=== PATIENT | male | born 1980 | race Caucasian/White ===

== ENCOUNTER 2023-05-02 13:33 | Emergency (ER) | payer MEDICAID, SELFPAY ==
[2023-05-02 13:40] VITALS: BP 108/50; BP 139/85; PULSE 104; PULSE 92; RESP 16; TEMP 36.5; O2SAT 93; O2SAT 94; BMI 29.2
--- NOTE | 2023-05-02 13:45 | ED_ITS ---
HPI - Overdose General Chief Complaint: Overdose Stated Complaint: OVERDOSE Time Seen by Provider: 05/02/23 13:42 Source: patient and EMS Mode of arrival: EMS Limitations: no limitations History of Present Illness HPI Narrative: This is 42 years old male brought in by the ambulance after an overdose, per ambulance EMS patient was found in the apartment awake and alert he was given 40 mg not can by bystander benign by the EMS. EMS states that he was no apneic and their arrival he was no ventilated. complaint: accidental overdose Onset (ago): hour(s) (1) Context: Accidental Overdose: wanted to get high Related Data Allergies Allergy/AdvReac Type Severity Reaction Status Date / Time No Known Allergies Allergy Unverified 08/03/20 15:25 Review of Systems ENT: Reports system reviewed and no additional complaints, except as documented Cardiovascular: Cardiovascular: Reports no additional cardiovascular complaints Respiratory: Respiratory: Reports no additional respiratory complaints Gastrointestinal: Gastrointestinal: Reports no additional gastrointestinal complaints PMFSH Past Medical History PMFSH Narrative: History of substance abuse Social History Social History Substance Use Type: Heroin Advance Directives: No Advance Directives Information Provided: No Physical Exam Vital Signs: Vital Signs: Last Vital Signs Temp 97.7 F 05/02/23 13:40 Pulse 92 05/02/23 13:40 Resp 16 05/02/23 13:40 BP 139/85 05/02/23 13:40 Pulse Ox 93 05/02/23 13:40 O2 Del Method Room Air 05/02/23 13:40 BMI result Body Mass Index 29.2 Const: General: cooperative Nutritional Appearance: well nourished Orientation/consciousness: patient oriented x3 Limitations: no limitations HEENT: Head: Yes normal to inspection General nose exam: Normal external nose present Face and sinus: Yes normal facial exam Mouth: Normal oral and palatal mucosa present Throat: Yes posterior oropharynx normal Neck: Neck: Yes normal visual inspection Thyroid: Thyroid normal Chest: Chest palpation & inspection: normal inspection of the chest Resp: Effort & Inspection: normal respiratory effort Auscultation: clear to auscultation bilaterally Cardio: Jugular venous distension: no JVD Rate: regular rate Rhythm: regular rhythm GI: Inspection: Yes normal to inspection Palpation (GI): Soft to palpation, not firm and nontender Percussion: Yes normal to percussion Skin: General skin exam: no rashes or lesions noted Lesions: no lesions Rashes: no rashes Neuro: General: patient oriented x3 Cranial nerves: Yes CN's II-XII intact bilaterally Cognition (Neuro): normal cognition Course Reevaluation(s) Reevaluation #1: 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 Plan is also to consult the care team for possible detox Differential Diagnosis Differential Diagnoses: The differential diagnosis associated with the presentation includes Overdose/pulmonary edema secondary to high dose of Narcan however he is not short of breath his saturation is good/endocarditis secondary to IVDA however he has no fever Admission/Observation Consideration of admission/observation: Escalation of care including admission/observation considered Independent Historian Clinical information obtained from an independent historian. History obtained from or confirmed by: EMS spoke personally with EMS Discharge Plan Discharge Clinical Impression: Drug overdose Patient Disposition: Still a Patient
--- NOTE | 2023-05-02 14:39 | HO.SUDE ---
Pt declined SUDE, declined to speak with t/w about any recovery supports or MOUD.
--- NOTE | 2023-05-02 14:44 | PC.NURSE ---
security at bedside to change pt over, belongings to be placed in decon.
--- NOTE | 2023-05-02 15:24 | PC.NURSE ---
pt sleeping in room, resp even and unlabored
--- NOTE | 2023-05-02 15:57 | MHC.EDTECH ---
pt is refusing vitals at this time. Pt is in bed, no apparent distress.
--- NOTE | 2023-05-02 18:24 | MHC.RECOVSUP ---
? Reason for consult:OPI o? Current location:ED10? o? Identified substance use concern:? -? Overdose ? Intervention: o? Community resources provided o? Harm reduction discussion ? Plan:Discharge ? Additional information:JOSE met with this pt and discussed treatment, Pt declined any services and stated it was an accident due to stress. RC provided this pt with recovery resources and business card in case pt changes his mind.
[2023-05-02 20:01] VITALS: BP 127/78; PULSE 77; RESP 18; TEMP 37; O2SAT 98
== END 2023-05-02 20:02 | disposition home or self-care (01) ==
PROVIDERS: Emergency Provider Student in an Organized Health Care Education/Training Program
DX: T40.1X1A Poisoning by heroin, accidental (unintentional), initial encounter (principal); R06.81 Apnea, not elsewhere classified; Y92.9 Unspecified place or not applicable
CPT/HCPCS: 99284

== ENCOUNTER 2023-05-27 11:29 | Emergency (ER) | payer MEDICAID, SELFPAY ==
[2023-05-27 11:35] VITALS: BP 133/82; BP 145/88; PULSE 108; PULSE 89; RESP 18; TEMP 37.1; O2SAT 94; O2SAT 97; BMI 29.1
--- NOTE | 2023-05-27 11:40 | ED_ITS ---
HPI - General Adult General Chief complaint: Overdose Stated complaint: Poss overdose (heroin) per EMS Time Seen by Provider: 05/27/23 11:39 Source: patient and EMS Mode of arrival: EMS Limitations: no limitations History of Present Illness HPI narrative: Patient is a 42 year old assigned male at with a history of opiate use presenting to the emergency department today after an accidental overdose. Patient states that he did 2 bags of heroin, family found him, gave narcan, and attempted to start CPR on him when he woke up. Patient states that he does not want any help with his heroin use. Patient denies any dizziness, lightheadedness, abdominal pain, nausea, vomiting, fever, chills, blurry vision, double vision, loss of vision, chest pain, difficulty breathing, shortness of breath, back pain, night sweats, pain with urination, increased urinary frequency, increased urinary urgency, blood in his urine or stool, syncope or a near syncopal episode, recent trauma or falls, bowel incontinence, bladder incontinence, bowel retention, bladder retention, or any other complaints at this time. Onset (ago): minute(s) Severity: mild Severity scale (1-10): 1 Relieving factors: none Exacerbating factors: none Associated symptoms: denies other symptoms Treatments prior to arrival: other (intranasal narcan given by family) Related Data Allergies Allergy/AdvReac Type Severity Reaction Status Date / Time No Known Allergies Allergy Unverified 08/03/20 15:25 Review of Systems Constitutional: Constitutional: Reports no additional constitutional complaints, Denies chills, Denies fever(s) and Denies night sweats Eyes: Eyes: Reports no additional eye complaints, Denies blurry vision, Denies change in vision, Denies diplopia, Denies eye discharge, Denies loss of vision and Denies eye pain ENT: Denies dizziness Cardiovascular: Cardiovascular: Reports no additional cardiovascular complaints, Denies chest pain, Denies lightheadedness, Denies Loss of Consciousness and Denies dyspnea Respiratory: Respiratory: Reports no additional respiratory complaints and Denies dyspnea Gastrointestinal: Gastrointestinal: Reports no additional gastrointestinal complaints, Denies abdominal pain, Denies melena, Denies hematochezia, Denies ch laila in bowel habits and Denies change in stool character Genitourinary: Genitourinary: Reports no additional male genitourinary complaints, Denies hematuria, Denies oliguria, Denies difficulty urinating, Denies dysuria, Denies urinary frequency, Denies urinary hesitancy, Denies urinary incontinence and Denies urinary urgency Musculoskeletal: Musculoskeletal: Reports no additional musculoskeletal complaints, Denies numbness and Denies tingling Neurologic: Denies dizziness, Denies loss of vision, Denies numbness and Denies tingling Psychiatric: Psychiatric: Reports no additional psychiatric complaints Endocrine: Endocrine: Reports no additional endocrine complaints Hematologic/Lymphatic: Hematologic/Lymphatic: Reports no additional hematologic/lymphatic complaints Allergic/Immunologic: Allergic/Immunologic: Reports no additional allerg ic/immunologic complaints [facility] Past Medical History Attestation statement: The following information was validated with the patient. Source: old records reviewed, obtained from family, nursing notes reviewed and other (EMS provided additional history and confirmed the history provided by the patient.) Social History Social History Alcohol intake: current Smoked in Last 30 Days: Yes Use of substances other than those prescribed or required for medical reasons: No Substance Use Type: Heroin Advance Directives: No Advance Directives Information Provided: Yes Physical Exam ED Vital Signs: Vital Signs - 24 hr 05/27/23 11:35 Temperature 98.8 F Pulse Rate 89 Respiratory Rate 18 Blood Pressure 133/82 Pulse Oximetry 94 Oxygen Delivery Method Room Air BMI result Body Mass Index 29.1 Const General: cooperative, no acute distress, alert and awake Nutritional Appearance: well nourished Orientation/consciousness: patient oriented x3 Limitations: no limitations HENMT Head: Yes normal to inspection and Yes atraumatic Ears: hearing grossly normal bilaterally and external ears normal General nose exam: Normal external nose present, no nasal discharge noted and no epistaxis Face and sinus: Yes normal facial exam, No abrasion and No laceration Mouth: Normal oral and palatal mucosa present, no drooling and no muffled voice Eyes General: appearance normal, both eyes and all related structures Periorbital: periorbital findings normal Eyelids: Yes eyelids normal Conjunctivae: conjunctivae normal Pupils: Equal, round and reactive pupils present EOM: EOMs intact bilaterally Neck Neck: Yes normal visual inspection, Yes full ROM and Yes no lymphadenopathy Chest Chest palpation & inspection: normal inspection of the chest Resp Effort & Inspection: normal respiratory effort and able to speak in complete sentences Auscultation: clear to auscultation bilaterally Cardio Rate: regular rate Rhythm: regular rhythm GI Inspection: Yes normal to inspection Neuro General: patient oriented x3 and moves all extremities Cranial nerves: Yes Equal, round and reactive pupils present Cognition (Neuro): normal cognition Motor exam (neuro): 5/5 motor strength present throughout Sensory Exam: Normal double simultaneous stimulation for sensation Coordination: [id number] test normal Extrem General: Yes normal to inspection, Yes full ROM and Yes capillary refill normal Psych Appearance: grossly normal Mental Status: mental status grossly normal Affect: normal affect Attitude: cooperative Thought process: Normal thought process present Thought content: Normal thought content present Insight: Good insight present (Psych) Medications Administered Discontinued Medications Generic Name Dose Route Start Last Admin Trade Name Freq PRN Reason Stop Dose Admin Naloxone HCl 8 mg 05/27/23 11:49 05/27/23 13:19 Naloxone Hcl Nasal Take Home 4 Mg [place] NOSTRILALT 05/27/23 11:50 8 mg ONCE ONE Administration Medical Decision Making Medical Decision Making MDM Narrative: Patient is a 42 year old assigned male at with a history of opiate use presenting to the emergency department today after an accidental opiate overdose. Patient's physical exam was unremarkable. Patient refused all work up. Recovery team attempted to provide the patient with resources to help with his opiate use however, the patient declined. I explained my physical exam findings to the patient. I answered all questions asked by the patient. I stressed the importance of the patient taking his medication as prescribed. I stressed the importance of the patient stopping his heroin use. I stressed the importance of the patient following up with his primary care provider. I stressed the importance of the patient returning to the emergency department immediately if his symptoms were to worsen or if he were to develop any dizziness, shortness of breath, difficulty breathing, chest pain, blurry vision, loss of vision, nausea, vomiting, abdominal pain, fever, chills, back pain, or any other complaints. Patient verbalized agreement and understanding with this treatment plan and discharge. Differential Diagnosis Differential Diagnoses: The differential diagnosis associated with the presentation includes Heroin use Accidental overdose Opiate use Opiate abuse Consult Healthcare Provider Management of the patient was discussed with: Behavioral Health Provider (spoke with recovery team as noted in the MDM portion of this chart. ) Independent Historian Clinical information obtained from an independent historian. History obtained from or confirmed by: EMS (EMS provided additional history and confirmed the history provided by the patient.) Prescription Management I considered prescription management with: Other (patient sent home with take home narcan.) Chronic Conditions Patient?s care impacted by: Other (heroin use) Social Determinants Heroin use. Discharge Plan Discharge Clinical Impression: Drug overdose Patient Disposition: Home, Self-Care Instructions: Opioid Safety (ED), Adult Overdose (ED), Opioid Use Disorder (ED) Additional Instructions: Please stop doing illicit drugs. Follow up with your primary care provider. Return to the emergency department immediately if your symptoms worsen or if you develop any dizziness, shortness of breath, difficulty breathing, chest pain, blurry vision, loss of vision, nausea, vomiting, abdominal pain, fever, chills, back pain, or any other complaints. Referrals: [facility] [place]] (Call to establish and follow up with a primary care provider. If you already have a primary care provider, please follow up with them.) [facility] [place] [facility] [Provider [facility]] (Call to establish and follow up with a primary care provider. If you already have a primary care provider, please follow up with them.) [facility] [place] [facility] [Provider Group] (Call to establish and follow up with a primary care provider. If you already have a primary care provider, please follow up with them.) Interventions: ED Discharge Assessment Last Done: 05/27/23 14:56 Discharge Date/Time: 05/27/23 14:57 Print Language: Bahamian
--- NOTE | 2023-05-27 11:42 | PC.NURSE ---
Alert and oriented. Arrived from home via ems. Per ems patient overdosed on heroin, family gave 8mg of narcan and cpr. Upon ems arrival patient alert and breathing on own. Patient reports he used 2 bags of heroin. VSS, no sob noted, denies any pain or discomfort. Changed over, belongings locked in decon
--- NOTE | 2023-05-27 11:44 | PC.NURSE ---
Patient denies SI/HI - states it was an accident
--- NOTE | 2023-05-27 12:26 | HO.SUDE ---
Addendum entered by Elio Paredes 05/27/23 16:37: reviewed with front man. Addendum entered by Elio Paredes 05/27/23 14:42: Attempted to meet again to [facility], however pt informs he is still feeling dizzy and nauseous and cannot talk to me at this time. Original Note: Met with pt in ED22H to [facility] but pt was tired and asked to check back later. Will check in with the pt again at another time, left recovery resources.
--- NOTE | 2023-05-27 13:06 | PC.NURSE ---
Resting quietly without any s/s of distress. Declines vitals stating he is fine
[2023-05-27] MEDS: Naloxone HCl Nasal TAKE HOME 4 MG SPRAY 8 MG NOSTRILALT (13:19)
--- NOTE | 2023-05-27 14:59 | PC.NURSE ---
PT REFUSING DETOX, PA AWARE
== END 2023-05-27 14:57 | disposition home or self-care (01) ==
PROVIDERS: Emergency Provider Emergency Medicine Emergency Medical Services
DX: T40.1X1A Poisoning by heroin, accidental (unintentional), initial encounter (principal); R40.4 Transient alteration of awareness; Y92.019 Unspecified place in single-family (private) house as the place of occurrence of the external cause
CPT/HCPCS: 99284